=== PATIENT | female | born 1990 | race Two or more races ===

== ENCOUNTER 2024-04-08 07:26 | Emergency (ER) | payer OTHER ==
[~2024-04-08] VITALS: Ht 157.5 cm; Wt 59.0 kg
[2024-04-08] MEDS ORDERED: IBUPROFEN 600 MG TABLET ONE (08:30)
[2024-04-08] MEDS: IBUPROFEN 600 MG TABLET PO ONE (08:33)
[2024-04-08] MEDS ORDERED: IBUP-1955 PO (08:48)
[2024-04-08 09:03] VITALS: BP 128/67; TEMP 98.8; O2SAT 95
== END 2024-04-08 09:03 | disposition home or self-care (01) ==
LOC: ER 07:37
DX: S10.83XA Contusion of other specified part of neck, initial encounter (principal); Z88.0 Allergy status to penicillin; Y04.0XXA Assault by unarmed brawl or fight, initial encounter; Y93.89 Activity, other specified; Y92.098 Other place in other non-institutional residence as the place of occurrence of the external cause; Y99.8 Other external cause status